=== PATIENT | male | born 1965 | race Two or more races ===

== ENCOUNTER → 2020-07-29 | Outpatient (CLI) | payer BC ==
--- NOTE | 2020-07-29 16:18 | XR ---
EXAMINATION TYPE: XR lumbosacral spine min 4V DATE OF EXAM: 07/29/2020 COMPARISON: None HISTORY: Pain, fall on ice TECHNIQUE: 5 view lumbar spine FINDINGS: There 5 lumbar-type vertebral bodies. Pedicles are intact. There is mild narrowing of the L 5-S1 disc height. Remaining Disc heights are preserved. Vertebral body heights are preserved. No spon dylolytic defects are evident. Facets are normal. IMPRESSION: 1. Mild degenerative disc change L5-S1. 2. No acute osseous abnormality.
--- NOTE | 2020-07-29 16:20 | XR ---
EXAMINATION TYPE: XR Hip RT and AP Pelvis DATE OF EXAM: 07/29/2020 COMPARISON: None HISTORY: Fall on ice, pain TECHNIQUE: 2 view right hip FINDINGS: Femoral head articulates with the acetabulum. No acute fracture or dislocation is evident. There may be a cam deformity on the right hip. Minimal joint space narrowing may be present. Exam is supplemented with an AP pelvis. Sacroiliac joints and symphysis pubis appear normal. Normal bowel gas is present. IMPRESSION: 1. No acute osseous abnormality right hip. 2. Cam deformity is not excluded right hip
== END ==
LOC: RADXRMAIN 15:10
PROVIDERS: ATTEND Physician Assistant
DX: S79.911A Unspecified injury of right hip, initial encounter (principal); M51.37 Other intervertebral disc degeneration, lumbosacral region; W00.0XXA Fall on same level due to ice and snow, initial encounter
CPT/HCPCS: 72110; 73502

== ENCOUNTER → 2021-07-07 | Outpatient (CLI) | payer BC ==
--- NOTE | 2021-07-07 14:35 | MR ---
EXAMINATION TYPE: MR lumbar spine wo con DATE OF EXAM: 07/07/2021 COMPARISON: Plain film 07/29/2020 HISTORY: M51.16 Lumbar disc prolapse with radiculopathy, right sided hip pain TECHNIQUE: Multiplanar, multisequence images of the lumbar spine were acquired without IV contrast. L1-L2: Normal disc appearance without desiccation. No herniation, protrusion or disc bulging. No ca nal stenosis is present. Foramina are patent bilaterally. L2-L3: Normal disc appearance without desiccation. No herniation, protrusion or disc bulging. No ca nal stenosis is present. Foramina are patent bilaterally. L3-L4: Posterior disc bulge causes mild anterior mass effect thecal sac. There is facet arthropathy w ith hypertrophy ligamentum flavum. No significant foraminal encroachment on the left, there may be so me circumferential extension endplate disc complex encroaches minimally on the inferior aspect of the foramen on the right L4-L5: Posterior central disc bulge causes minimal anterior mass effect on the thecal sac, eccentric bulge towards the left encroaches somewhat on the inferior aspect of the neural foramen. There is fac et arthropathy with hypertrophy of ligamentum flavum contacting posterior thecal sac. L5-S1: Facet arthropathy is present. Posterior broad-based disc bulge causes anterior mass effect on the thecal sac and possibly contact the proximal S1 nerve root, circumferential extension of endplate disc complex on the right causes foraminal encroachment, correlate for right L5, S1 radiculopathy. W ithin the right neural foramen, axial image 4, sagittal image #15 there is a T2 bright focus measurin g approximately 6 mm posterior to the right nerve root with possible mass effect, 5 could possibly re present synovial cyst. Lumbar segments are intact. No paraspinal masses are identified. Conus medullaris has a normal appe arance. Lumbar vertebral bodies show preserved height. Loss of disc height signal is greatest at L5-S 1. There is mild multilevel spondylosis with endplate discogenic marrow signal change. No significant spinal stenosis. IMPRESSION: Correlate for right L5 radiculopathy, possible synovial cyst is degenerative disc disease and foramin al encroachment, facet arthropathy as described
== END | disposition home or self-care (01) ==
LOC: RADMRIMAIN 10:46
PROVIDERS: ATTEND Family Medicine
DX: M51.16 Intervertebral disc disorders with radiculopathy, lumbar region (principal); M47.26 Other spondylosis with radiculopathy, lumbar region
CPT/HCPCS: 72148

== ENCOUNTER → 2024-06-22 | Outpatient (CLI) | payer BC ==
--- NOTE | 2024-06-22 16:33 | US ---
EXAMINATION TYPE: US thyroid st tissue head/neck DATE OF EXAM: 06/22/2024 COMPARISON: EXAMINATION TYPE: US thyroid st tissue head/neck DATE OF EXAM: 06/22/2024 COMPARISON: NONE CLINICAL INDICATION: Male, 59 years old with history of R22.0 LOCALIZED SWELLING, MASS; Lump left nec k . TECHNIQUE: FINDINGS: Hypoechoic area with vascularity left neck adjacent to submandibular gland measuring 1.7 x 1.2 x 1.7 cm. IMPRESSION: Lesion could reflect abnormal lymph node or peripheral submandibular solid mass or neopl asm. Advise ENT referral and probable imaging guided FNA to further evaluate. [facility], , 06/22/2024 4:31 PM
== END | disposition home or self-care (01) ==
LOC: RADUSWWP 15:59
PROVIDERS: ATTEND Family Medicine
DX: R22.0 Localized swelling, mass and lump, head (principal)
CPT/HCPCS: 76536